=== PATIENT | female | born 1960 | race Caucasian/White ===

== ENCOUNTER 2020-02-01 21:25 | Observation (INO) ==
[2020-02-01 21:58] LABS: Bilirubin,Urine Negative (Negative); Blood,Urine Negative (Negative); Clarity,Urine Cloudy (Clear); Color,Urine Yellow (Yellow); Glucose,Urine (UA) Normal (Normal); Ketones,Urine Negative (Negative); Leukocyte Esterase,Urine Large (Negative); Nitrite,Urine Positive (Negative); PH,Urine 5.5 pH Units (5.0-8.0); Protein,Urine Negative (Neg-Trace); Specific Gravity,Urine 1.025 (1.010-1.025); Urobilinogen,Urine Normal (Normal)
[2020-02-01 22:00] LABS: Basophils % 0.3 %; Eosinophils # 0.5 K/mcL (0.0-0.6); Eosinophils % 4.4 %; Hematocrit 41.9 % (35.3-44.9); Hemoglobin 13.8 g/dL (11.5-15.4); Immature Granulocytes % 0.3 % (0-4); Lymphocytes # 3.7 K/mcL (0.6-4.6); Lymphocytes % 31.7 %; Mean Corpuscular HGB Conc 32.9 g/dL (31.6-35.5); Mean Corpuscular Volume 81.8 fL (83.0-100.0); Mean Platelet Volume 9.2 fL (9.4-12.4); Monocytes # 0.9 K/mcL (0.0-1.3); Monocytes % 7.3 %; Neutrophils # 6.5 K/mcL (1.6-8.9); Platelet Count 414 K/mcL (140-400); Red Blood Count 5.12 M/mcL (3.82-4.97); Red Cell Distribution Width 14.6 % (11.5-14.5); White Blood Count 11.6 K/mcL (4.3-11.1)
[2020-02-01 22:01] LABS: Bacteria,Urine Many per hpf (None-Few); Hyaline Casts,Urine None Seen per lpf (None-Few); Squamous Epithelial Cell,Urine Many per lpf (None-Few); WBC,Urine 50-100 per hpf (0-3)
[2020-02-01] MEDS ORDERED: cephALEXin 500 MG CAPSULE PO STA (22:07)
[2020-02-01 22:11] LABS: Calcium Oxalate Crystals,Urine Present; RBC,Urine 0-3 per hpf (0-3)
[2020-02-01 22:18] LABS: Acetaminophen < 10 mcg/mL (10-20); BUN/Creatinine Ratio 19 (6-26); Blood Urea Nitrogen 16 mg/dL (6-20); Calcium 10.7 mg/dL (8.6-10.3); Carbon Dioxide 23 mEq/L (23-29); Chloride 102 mEq/L (98-107); Ethanol < 10 mg/dL (Less than 10); Glucose 180 mg/dL (70-105); Osmolality,Calculated 286 (280-300); Potassium 3.1 mEq/L (3.5-5.1); Salicylate < 2.5 mg/dL (15.0-30.0); Sodium 135 mEq/L (136-145); eGFR For African Americans > 60 (> 60); eGFR For Non-African Americans > 60 (> 60)
[2020-02-01 22:19] LABS: Amphetamine Screen,Urine Negative ng/mL (Cutoff=1000); Barbiturate Screen,Urine Negative ng/mL (Cutoff=200); Benzodiazepines Screen,Urine Negative ng/mL (Cutoff=200); Cannabinoid Screen,Urine Positive ng/mL (Cutoff = 50); Cocaine Screen,Urine Negative ng/mL (Cutoff= 300); Opiate Screen,Urine Negative ng/mL (Cutoff=300); Phencyclidine Screen,Urine Negative ng/mL (Cutoff=25)
[2020-02-01] MEDS ORDERED: Potassium Chloride Elixir 20 MEQ/15 ML UDC PO STA (22:31)
[2020-02-02] MEDS ORDERED: Naloxone 0.4 MG/ML INJ IVP PRN (00:55)
[2020-02-02] MEDS ORDERED: Ondansetron 4 MG/2 ML VIAL IVP PRN (00:55)
[2020-02-02] MEDS ORDERED: *HR* Dextrose 50 % in Water (Syg) 50 ML SYRINGE IVP PRN (00:59)
[2020-02-02] MEDS ORDERED: D5% in Water 1,000 ML IVC PRN (00:59)
[2020-02-02] MEDS ORDERED: Dextrose Gel 15 GM/37.5 ML TUBE PO PRN ×2 (00:59)
[2020-02-02 01:51] LABS: Estimated Average Glucose 120 mg/dl
[2020-02-02] MEDS: cephALEXin 500 MG CAPSULE PO SCH ×5 (02:07→20:57)
[2020-02-02] MEDS: Insulin LISPRO 300 UNITS/3 ML VIAL SQ SCH ×5 (02:19→20:57)
[2020-02-02] MEDS ORDERED: Haloperidol Lactate 5 MG/ML VIAL IVP ONE (03:17)
[2020-02-02] MEDS: 0.9 % Sodium Chloride 1,000 ML IVC SCH (03:28)
[2020-02-02] MEDS ORDERED: *HR* LORazepam 2 MG/ML VIAL IVP ONE (05:14)
[2020-02-02] MEDS: *HR* Heparin 5,000 UNIT/ML VIAL SQ SCH ×3 (05:40→20:58)
[2020-02-02 05:46] LABS: Basophils % 0.3 %; Eosinophils # 0.2 K/mcL (0.0-0.6); Eosinophils % 1.4 %; Hematocrit 41.2 % (35.3-44.9); Hemoglobin 13.5 g/dL (11.5-15.4); Immature Granulocytes % 0.5 % (0-4); Lymphocytes % 23.1 %; Mean Corpuscular HGB Conc 32.8 g/dL (31.6-35.5); Mean Corpuscular Hemoglobin 26.9 pg (28.0-33.3); Mean Corpuscular Volume 82.2 fL (83.0-100.0); Mean Platelet Volume 9.3 fL (9.4-12.4); Monocytes # 0.9 K/mcL (0.0-1.3); Monocytes % 7.2 %; Neutrophils # 8.9 K/mcL (1.6-8.9); Platelet Count 368 K/mcL (140-400); Red Blood Count 5.01 M/mcL (3.82-4.97); Red Cell Distribution Width 14.6 % (11.5-14.5); Segmented Neutrophils % 67.5 %; White Blood Count 13.1 K/mcL (4.3-11.1)
[2020-02-02 06:09] LABS: BUN/Creatinine Ratio 17 (6-26); Blood Urea Nitrogen 13 mg/dL (6-20); Carbon Dioxide 23 mEq/L (23-29); Chloride 104 mEq/L (98-107); Glucose 130 mg/dL (70-105); Osmolality,Calculated 288 (280-300); Sodium 138 mEq/L (136-145); eGFR For African Americans > 60 (> 60); eGFR For Non-African Americans > 60 (> 60)
[2020-02-02] MEDS ORDERED: Fish Oil Omega-3 Softgel PO SCH (09:00)
[2020-02-02] MEDS: lamoTRIgine 100 MG TABLET PO SCH ×2 (09:31→20:57)
[2020-02-02] MEDS: BuPROPion XL (24 HR) 150 MG TABLET PO SCH (09:32)
[2020-02-02] MEDS: amLODIPine 5 MG TABLET PO SCH (09:32)
[2020-02-02] MEDS: gemfibroziL 600 MG TABLET PO SCH (17:56)
[2020-02-02] MEDS ORDERED: risperiDONE 1 MG TABLET PO SCH (21:00)
[2020-02-03 02:12] LABS: Hematocrit 37.9 % (35.3-44.9); Hemoglobin 12.5 g/dL (11.5-15.4); Mean Corpuscular Hemoglobin 27.8 pg (28.0-33.3); Mean Corpuscular Volume 84.2 fL (83.0-100.0); Mean Platelet Volume 9.2 fL (9.4-12.4); Platelet Count 344 K/mcL (140-400); White Blood Count 8.9 K/mcL (4.3-11.1)
[2020-02-03] MEDS: Acetaminophen 325 MG TABLET PO PRN ×2 (03:24→09:22)
[2020-02-03] MEDS: 0.9 % Sodium Chloride 1,000 ML IVC SCH (04:33)
[2020-02-03] MEDS: *HR* Heparin 5,000 UNIT/ML VIAL SQ SCH (06:14)
[2020-02-03 07:27] VITALS: BP 136/82
[2020-02-03] MEDS: Insulin LISPRO 300 UNITS/3 ML VIAL SQ SCH (07:53)
[2020-02-03] MEDS ORDERED: Fish Oil Omega-3 Softgel PO SCH (09:00)
[2020-02-03] MEDS: cephALEXin 500 MG CAPSULE PO SCH (09:21)
[2020-02-03] MEDS: lamoTRIgine 100 MG TABLET PO SCH (09:21)
[2020-02-03] MEDS: amLODIPine 5 MG TABLET PO SCH (09:22)
[2020-02-03] MEDS: gemfibroziL 600 MG TABLET PO SCH (09:22)
[2020-02-03] MEDS: BuPROPion XL (24 HR) 150 MG TABLET PO SCH (09:22)
== END 2020-02-03 10:51 | disposition home or self-care (01) ==
LOC: 3BNU 21:25 → EMEROOARM 21:25 → SUATTDRO 02-02 00:46 → 3BNU 02-02 01:57
PROVIDERS: ADMIT Family Medicine; ATTEND Family Medicine